=== PATIENT | female | born 1955 | race Caucasian/White ===

== ENCOUNTER → 2016-04-30 | Outpatient (REF) | payer OTHER | LOC: M LAB REF 14:55 | PROVIDERS: ATTEND Internal Medicine | DX: E78.5 Hyperlipidemia, unspecified (principal); E78.1 Pure hyperglyceridemia ==

== ENCOUNTER → 2017-01-03 | Outpatient (REF) | payer OTHER | LOC: M LAB REF 17:08 | PROVIDERS: ATTEND Internal Medicine | DX: E78.5 Hyperlipidemia, unspecified (principal) ==

== ENCOUNTER → 2018-05-14 | Outpatient (REF) | payer OTHER ==
[2018-05-16 14:21] LABS: HPV HYBRID CAPTURE II Negative (Negative)
== END ==
LOC: M SFHCWAGY 11:32
PROVIDERS: ATTEND Nurse Practitioner Family
DX: Z12.4 Encounter for screening for malignant neoplasm of cervix (principal); N95.2 Postmenopausal atrophic vaginitis
CPT/HCPCS: 87624; G0123

== ENCOUNTER → 2018-05-14 | Outpatient (CLI) | payer OTHER ==
--- NOTE | 2018-05-14 13:53 | REPMRS ---
Patient History The patient states she had a clinical breast exam in 05/2018. Patient is postmenopausal. Family history of breast cancer in maternal aunt, breast cancer in maternal grandmother, breast cancer in maternal cousin, colorectal cancer at age 50 or over in mother. Benign excisional biopsy of the left breast, 2005. Benign excisional biopsy of the right breast, 1971. Took hormonal contraceptives for 1 year beginning at age 20. 3D TOMOSYNTHESIS WAS PERFORMED. Digital Woman Screen Mammo: May 14, 2018 - Exam #: [id number] Bilateral CC and MLO view(s) were taken. Technologist: Cyndi Grant, Technologist Prior study comparison: May 17, 2015, digital woman screen mammo performed at [facility]. October 25, 2010, bilateral screening mammogram performed at [facility]. FINDINGS: The breast tissue is heterogeneously dense. This may lower the sensitivity of mammography. There has been no change in the appearance of the mammogram from the prior studies. There is a moderate amount of residual fibroglandular tissue which is fairly symmetric. There is no interval development of dominant mass, areas of architectural distortion, or clustered microcalcification typical of malignancy. Assessment: BI-RADS/ACR category 1 mammogram. Negative Mammogram. Recommendation Routine screening mammogram in 1 year (for women over age 40). This mammogram was interpreted with the aid of an FDA-approved computer-aided dectection system. Electronically Signed By: Jaylen Cali MD 05/14/18 [id number]
== END ==
LOC: M WHC 11:11
PROVIDERS: ATTEND Nurse Practitioner Family
DX: Z12.31 Encounter for screening mammogram for malignant neoplasm of breast (principal); Z78.0 Asymptomatic menopausal state; Z92.0 Personal history of contraception

== ENCOUNTER → 2019-05-05 | Outpatient (REF) | payer MEDICARE, OTHER ==
[2019-05-07 08:06] LABS: LDL DIRECT 120 mg/dL (0-99)
== END ==
LOC: M LAB REF 12:09
PROVIDERS: ATTEND Internal Medicine
DX: E78.5 Hyperlipidemia, unspecified (principal)

== ENCOUNTER → 2020-01-21 | Outpatient (REF) | payer MEDICARE, OTHER ==
[2020-01-23 07:07] LABS: LDL DIRECT 127 mg/dL (0-99)
== END ==
LOC: M LAB REF 16:08
PROVIDERS: ATTEND Internal Medicine
DX: E78.5 Hyperlipidemia, unspecified (principal)

== ENCOUNTER → 2020-12-08 | Outpatient (CLI) | payer MEDICARE, OTHER ==
--- NOTE | 2020-12-08 14:24 | REPMRS ---
Patient History The patient states she had a clinical breast exam in November 2020. Family history of breast cancer in maternal aunt, breast cancer in maternal grandmother, breast cancer in maternal cousin, colorectal cancer at age 50 or over in mother. Benign excisional biopsy of the left breast, 2005. Benign excisional biopsy of the right breast, 1971. Took hormonal contraceptives for 1 year beginning at age 20. Patient states no breast complaints today. Patient has signed MRS History Sheet. Digital Woman Screen Mammo: December 08, 2020 - Exam #: [id number] Bilateral CC and MLO view(s) were taken. Technologist: Zabrina Flores, Technologist Prior study comparison: May 14, 2018, bilateral digital woman screen mammo performed at [facility]. May 17, 2015, digital woman screen mammo performed at [facility]. FINDINGS: There are scattered fibroglandular densities. Screening. Digital screening (2D) mammography was performed bilaterally in the CC and MLO projections. Additionally, breast tomosynthesis (3D mammography) was performed bilaterally in the CC and MLO projections. Todays exam was compared to the prior exam/exams. By history, the patient has no complaints of a palpable breast abnormality or other significant breast complaints. The breasts are unchanged in size and shape. There are no rios-soft tissue densities or spiculated masses. There is no internal architectural distortion. Once again, stable benign appearing calcifications are seen.There are no suspicious rios-calcific clusters. Skin thickening or nipple retraction is not present. IMPRESSION: BI-RADS Category 2- Benign Findings. There is no evidence of malignant alteration of the breasts. Followup examination recommended in one year. The Volpara volumetric breast density category is B, there are scattered areas of fibroglandular densities. This mammogram was read with the assistance of [employer],an FDA approved computer aided detection system for mammography. The lifetime Tyrer-Cuzick score is 11.4 % Negative x-ray reports should not delay surgical consultation if a dominant or clinically suspicious mass is present. Not all breast cancers can be identified by mammography. Therefore, we recommend that you continue to perform regular breast self-examination and physical examination and then promptly contact your physician of any concerns or changes. Adenosis and dense breasts may obscure an underlying neoplasm. Assessment: BI-RADS/ACR category 2 mammogram. Benign Findings. Recommendation Routine screening mammogram of both breasts in 1 year. Electronically Signed By: Jenaro Maxwell DO 12/08/20 2021
== END ==
LOC: M WHC 13:21
PROVIDERS: ATTEND Nurse Practitioner Women's Health
DX: Z12.31 Encounter for screening mammogram for malignant neoplasm of breast (principal); Z80.3 Family history of malignant neoplasm of breast; Z12.4 Encounter for screening for malignant neoplasm of cervix
CPT/HCPCS: 77063; 77067; G0101

== ENCOUNTER → 2021-04-01 | Outpatient (CLI) | payer MEDICARE, OTHER ==
[~2021-04-01] MED LIST: CARV25TA PO; CENT1TAB PO; CVS-277 PO; D-50TAB PO; FAMO20TA5 PO; GLIM2TAB29 PO; INVO1TAB4 PO; MAGN400C2 PO; RAMI1CAP26 PO; TARTCAP PO; VICT18IN SC; VITA-243 PO; ZOLO100T PO; [UNRECOGNIZED DRUG - OTHER] PO
== END ==
LOC: M LABSMTC 12:28
PROVIDERS: ATTEND Anesthesiology
DX: Z01.812 Encounter for preprocedural laboratory examination (principal); Z20.822 Contact with and (suspected) exposure to COVID-19

== ENCOUNTER 2021-04-06 06:48 | Day surgery (SDC) | payer MEDICARE, OTHER ==
[~2021-04-06] VITALS: Ht 157.5 cm; Wt 100.2 kg
[~2021-04-06 06:48] MED LIST changes: +NS 1,000 ML IV ONE
[2021-04-06] MEDS ORDERED: GLYCOPYRROLATE INJ 0.2 MG/ML 2 ML VIAL As Ordered ONE (08:06)
[2021-04-06] MEDS ORDERED: LIDOCAINE 2% 100MG/5ML SDV (FOR ANES.) As Ordered ONE (08:06)
[2021-04-06] MEDS ORDERED: propofoL 200 MG/20 ML VIAL As Ordered ONE ×3 (08:06→08:20)
[2021-04-06 09:00] VITALS: BP 139/82
== END 2021-04-06 09:12 | disposition home or self-care (01) ==
LOC: M OPP 06:48
PROVIDERS: ATTEND Internal Medicine Gastroenterology
DX: Z12.11 Encounter for screening for malignant neoplasm of colon (principal); Z86.010 Personal history of colon polyps; Z80.0 Family history of malignant neoplasm of digestive organs; K63.5 Polyp of colon; K57.30 Diverticulosis of large intestine without perforation or abscess without bleeding; K29.70 Gastritis, unspecified, without bleeding; K57.10 Diverticulosis of small intestine without perforation or abscess without bleeding; R12 Heartburn; Z79.899 Other long term (current) drug therapy; Z88.0 Allergy status to penicillin; Z88.5 Allergy status to narcotic agent; Z88.8 Allergy status to other drugs, medicaments and biological substances; Z91.048 Other nonmedicinal substance allergy status; Z80.1 Family history of malignant neoplasm of trachea, bronchus and lung; Z80.3 Family history of malignant neoplasm of breast

== ENCOUNTER → 2021-06-13 | Outpatient (REF) | payer MEDICARE, OTHER ==
[~2021-06-13] MED LIST changes: -NS 1,000 ML IV ONE
== END ==
LOC: M LAB REF 11:18
PROVIDERS: ATTEND Internal Medicine
DX: L02.212 Cutaneous abscess of back [any part, except buttock and flank] (principal)

== ENCOUNTER → 2021-12-26 | Outpatient (REF) | payer MEDICARE, OTHER ==
[2021-12-28 08:11] LABS: LDL DIRECT 111 mg/dL (0-99)
== END ==
LOC: M LAB REF 12:44
PROVIDERS: ATTEND Physician Assistant Medical
DX: E78.5 Hyperlipidemia, unspecified (principal)

== ENCOUNTER → 2022-01-04 | Outpatient (CLI) | payer MEDICARE, OTHER | LOC: M WHC 14:29 | PROVIDERS: ATTEND Physician Assistant Medical | DX: Z12.31 Encounter for screening mammogram for malignant neoplasm of breast (principal); M85.851 Other specified disorders of bone density and structure, right thigh ==

== ENCOUNTER → 2022-10-02 | Outpatient (CLI) | payer MEDICARE, OTHER | LOC: M WUC 14:30 | PROVIDERS: ATTEND Physician Assistant Medical | DX: M47.812 Spondylosis without myelopathy or radiculopathy, cervical region (principal) ==

== ENCOUNTER → 2023-08-22 | Outpatient (REF) | payer MEDICARE, OTHER ==
[~2023-08-22] MED LIST changes: +RAMI10CA64 PO; -RAMI1CAP26 PO
== END ==
LOC: M LAB REF 16:20
PROVIDERS: ATTEND Student in an Organized Health Care Education/Training Program
DX: R30.0 Dysuria (principal)

== ENCOUNTER → 2023-08-27 | Outpatient (REF) | payer MEDICARE, OTHER | LOC: M LAB REF 17:47 | PROVIDERS: ATTEND Nurse Practitioner Family | DX: R10.9 Unspecified abdominal pain (principal); N39.0 Urinary tract infection, site not specified ==

== ENCOUNTER → 2023-10-04 | Outpatient (CLI) | payer MEDICARE, OTHER | LOC: M RAD 09:37 | PROVIDERS: ATTEND Physician Assistant Medical | DX: R10.9 Unspecified abdominal pain (principal); R35.0 Frequency of micturition; N20.0 Calculus of kidney ==

== ENCOUNTER → 2023-10-28 | Outpatient (CLI) | payer MEDICARE, OTHER | LOC: M RAD 11:18 | PROVIDERS: ATTEND Urology | DX: N20.0 Calculus of kidney (principal) ==

== ENCOUNTER 2023-12-05 11:19 | Inpatient (IN) | payer MEDICARE, OTHER ==
[~2023-12-05] VITALS: Ht 157.5 cm; Wt 89.1 kg
[2023-12-05] MEDS ORDERED: SEMA2PEN SQ (12:32)
[2023-12-05 12:52] LABS: BASO % 0.1 % (0.0-1.0); EOS % 0.3 % (0.0-3.0); HEMATOCRIT 35.2 % (36.0-47.0); HEMOGLOBIN 11.2 g/dl (12.0-15.5); LYMPH # 1.2 10^3/uL (1.5-5.0); LYMPH % 8.6 % (24.0-44.0); MEAN CORPUSCULAR HEMOGLOBIN 29.4 pg (27.0-33.0); MEAN CORPUSCULAR HGB CONC 31.8 g/dl (32.0-36.5); MEAN CORPUSCULAR VOLUME 92.4 fl (80.0-96.0); MONO # 0.8 10^3/uL (0.0-0.8); MONO % 5.8 % (2.0-8.0); NEUTROPHILS # 11.2 10^3/uL (1.5-8.5); NEUTROPHILS % 83.6 % (36.0-66.0); PLATELET COUNT, AUTOMATED 298 10^3/uL (150-450); RED BLOOD COUNT 3.81 10^6/uL (4.00-5.40); WHITE BLOOD COUNT 13.4 10^3/uL (4.0-10.0)
[2023-12-05] MEDS: ONDANSETRON 4MG 2ML VIAL IV ONE (12:55)
[2023-12-05] MEDS: MORPHINE 2 MG/ML 1ML VIAL IV ONE (12:55)
[2023-12-05] MEDS: NS 2,520 ML in IV 1 EA IV ONE (12:56)
[2023-12-05] MEDS ORDERED: DOXY100C3 PO (13:06)
[2023-12-05] MEDS ORDERED: METF10004 PO (13:16)
[2023-12-05] MEDS ORDERED: INVO300T PO (13:16)
[2023-12-05] MEDS ORDERED: GLIP10TA15 PO (13:16)
[2023-12-05 13:17] LABS: CK-MB VALUE MASS < 1.0 NG/ML (<3.6)
[2023-12-05 13:18] LABS: VENOUS BASE EXCESS -9.6 (-2.0-2.0); VENOUS HCO3 16.8 MMOL/L (23.0-27.0); VENOUS O2 SATURATION 52.9 % (60.0-80.0); VENOUS PARTIAL PRESSURE CO2 38.4 mmHg (38.0-50.0); VENOUS PARTIAL PRESSURE O2 31.3 mmHg (30.0-50.0); VENOUS PH 7.258 UNITS (7.330-7.430); VENOUS TOTAL CO2 17.9 MMOL/L (24.0-28.0)
[2023-12-05] MEDS ORDERED: GABA-1171 PO (13:18)
[2023-12-05] MEDS ORDERED: GLIP5TAB17 PO (13:18)
[2023-12-05] MEDS ORDERED: HOME MED LIST COMPLETE! XX SCH (13:20)
[2023-12-05 13:26] LABS: PROCALCITONIN 0.11 ng/ml
[2023-12-05 13:29] LABS: ALBUMIN 2.7 G/DL (3.2-5.2); ALKALINE PHOSPHATASE 125 U/L (46-116); ALT/SGPT < 9 U/L (7.0-40); AST/SGOT 17 U/L (<34); BILIRUBIN,DIRECT 0.1 MG/DL (<0.4); BILIRUBIN,TOTAL 0.4 MG/DL (0.3-1.2); BLOOD UREA NITROGEN 21 MG/DL (9-23); CALCIUM LEVEL 9.5 MG/DL (8.3-10.6); CARBON DIOXIDE LEVEL 19 MMOL/L (20-31); CHLORIDE LEVEL 108 MMOL/L (98-107); CREATININE FOR GFR 0.62 MG/DL (0.55-1.30); GLOMERULAR FILTRATION RATE > 60.0 (>39); GLUCOSE, FASTING 209 MG/DL (74-106); POTASSIUM SERUM 5.4 MMOL/L (3.5-5.1); SODIUM LEVEL 138 MMOL/L (136-145); TOTAL PROTEIN 6.3 G/DL (5.7-8.2)
[2023-12-05 13:32] LABS: AMYLASE < 20 U/L (30-118); CPK CREATINE PHOSPHOKINASE 23 U/L (34-145); MB/CK RELATIVE INDEX 4.34 (< OR =4)
[2023-12-05 13:33] LABS: INR 1.11; PARTIAL THROMBOPLASTIN TIME 29.6 SECONDS (24.8-34.2); PROTHROMBIN TIME 13.9 SECONDS (12.5-14.5)
[2023-12-05] MEDS ORDERED: ISOVUE-370 76% 100ML VIAL As Ordered ONE (13:34)
[2023-12-05] MEDS ORDERED: VANCOMYCIN HCL 1,000 MG in IV FLUID PLACE HOLDER 1 EA IV ONE (15:30)
[2023-12-05 15:45] LABS: APPEARANCE, URINE HAZY (CLEAR); BACTERIA, URINE AUTO NEGATIVE (NEGATIVE); BILIRUBIN, URINE AUTO NEGATIVE (NEGATIVE); BLOOD, URINE BLOOD NEGATIVE (NEGATIVE); COLOR, URINE YELLOW (YELLOW); GLUCOSE, URINE (UA) AUTO 3+ mg/dL (NEGATIVE); KETONE, URINE AUTO TRACE mg/dL (NEGATIVE); LEUKOCYTE ESTERASE, URINE AUTO TRACE (NEGATIVE); MUCUS, URINE SMALL (NEGATIVE); NITRITE, URINE AUTO NEGATIVE (NEGATIVE); PROTEIN, URINE AUTO NEGATIVE (NEGATIVE); RBC, URINE AUTO 0 /HPF (0-3); SPECIFIC GRAVITY URINE AUTO 1.035 (1.002-1.035); SQUAMOUS EPITHELIAL CELL UR AU 1 /HPF (0-6); UROBILINOGEN, URINE AUTO 0.2 mg/dL (0.0-2.0); WBC, URINE AUTO 6 /HPF (0-3)
[2023-12-05] MEDS ORDERED: ACETAMINOPHEN TAB 650MG DOSE (2X325MG) PO PRN (16:20)
[2023-12-05] MEDS: cefTRIAXone SOD 1 GM in D5W MINI-BAG PLUS 50 ML IV ONE (16:50)
[2023-12-05] MEDS ORDERED: PIPERACILLIN/TAZOBACTAM SOD 3.375 GM in D5W MINI-BAG PLUS 50 ML IV SCH (17:45)
[2023-12-05] MEDS: VANCOMYCIN 1,500 MG/300 ML IV BAG *LOAD IV ONE (17:46)
[2023-12-05] MEDS ORDERED: GLUCOSE 4 GM CHEW PO PRN (17:50)
[2023-12-05] MEDS ORDERED: GLUCAGON INJ 1MG VIAL SC PRN (17:50)
[2023-12-05] MEDS ORDERED: DEXTROSE 50% 50ML SYRINGE IV PRN (17:50)
[2023-12-05 18:00] LABS: FREE T4 1.04 NG/DL (0.89-1.76); THYROID STIMULATING HORMONE 0.888 uIU/ML (0.55-4.78)
[2023-12-05 18:49] LABS: HEMOGLOBIN A1c 8.3 % (4.0-6.0)
[2023-12-05] MEDS: MORPHINE 4 MG/ML 1ML VIAL IV PRN (19:57)
[2023-12-05] MEDS: LIDOCAINE W/EPINEPHRINE 1% 20ML VIAL SC ONE (20:15)
[2023-12-05] MEDS: INSULIN LISPRO (NovoLOG) PER UNIT SC SCH (21:00)
[2023-12-05] MEDS: MEROPENEM INJ 1 GM in IV 1 EA IV SCH (21:30)
[2023-12-05] MEDS: FAMOTIDINE 20 MG TAB PO SCH (21:32)
[2023-12-05] MEDS: CARVedilol 12.5 MG TAB PO SCH (21:32)
[2023-12-05] MEDS: NS 500 ML IV ONE (21:34)
[2023-12-05] MEDS: SODIUM BICARBONATE 325 MG TAB PO SCH (22:07)
[2023-12-05] MEDS: NS 1,000 ML IV SCH (22:13)
[2023-12-06 03:10] VITALS: BP 107/50; TEMP 99.4; O2SAT 93
[2023-12-06] MEDS ORDERED: ALBUTEROL 90 MCG/ACT 8GM HFA INHALER INH PRN (04:10)
[2023-12-06] MEDS ORDERED: DEXTROMETHORPHAN 60MG/10ML SUSP 90ML BTL(DELSYM) PO PRN (04:10)
[2023-12-06 06:16] LABS: MEAN CORPUSCULAR HEMOGLOBIN 29.7 pg (27.0-33.0); MEAN CORPUSCULAR HGB CONC 31.4 g/dl (32.0-36.5); MEAN CORPUSCULAR VOLUME 94.5 fl (80.0-96.0); PLATELET COUNT, AUTOMATED 263 10^3/uL (150-450); WHITE BLOOD COUNT 15.8 10^3/uL (4.0-10.0)
[2023-12-06] MEDS: VANCOMYCIN HCL 1,000 MG, VIAL MATE ADAPTER 1 EACH in D5W 250 ML IV SCH (06:22)
[2023-12-06 06:27] LABS: HEMATOCRIT 29.3 % (36.0-47.0); HEMOGLOBIN 9.2 g/dl (12.0-15.5)
[2023-12-06 06:58] LABS: ALBUMIN 2.1 G/DL (3.2-5.2); ALKALINE PHOSPHATASE 105 U/L (46-116); ALT/SGPT < 9 U/L (7.0-40); AST/SGOT < 8 U/L (<34); BILIRUBIN,TOTAL 0.2 MG/DL (0.3-1.2); BLOOD UREA NITROGEN 19 MG/DL (9-23); CALCIUM LEVEL 8.2 MG/DL (8.3-10.6); CARBON DIOXIDE LEVEL 12 MMOL/L (20-31); CHLORIDE LEVEL 111 MMOL/L (98-107); CREATININE FOR GFR 0.72 MG/DL (0.55-1.30); GLOMERULAR FILTRATION RATE > 60.0 (>39); GLUCOSE, FASTING 162 MG/DL (74-106); MAGNESIUM LEVEL 1.9 MG/DL (1.8-2.4); POTASSIUM SERUM 4.8 MMOL/L (3.5-5.1); SODIUM LEVEL 136 MMOL/L (136-145); TOTAL PROTEIN 5.2 G/DL (5.7-8.2)
[2023-12-06 09:17] VITALS: BP 99/41
[2023-12-06] MEDS: ASCORBIC ACID 500 MG TAB PO SCH (09:18)
[2023-12-06] MEDS: LACTOBACILLUS ACIDOPHILUS CAP (BACID) PO SCH (09:18)
[2023-12-06] MEDS: GABAPENTIN 100 MG CAP PO SCH (09:19)
[2023-12-06] MEDS: FLUCONAZOLE 50MG TABLET PO SCH (09:20)
[2023-12-06] MEDS: INSULIN LISPRO (NovoLOG) PER UNIT SC SCH (09:25)
[2023-12-06] MEDS: DIAPER RELIEF PASTE (DESITIN) 60GM TOP SCH (09:26)
[2023-12-06] MEDS: SERTRALINE 100 MG TAB PO SCH (09:27)
[2023-12-06] MEDS: MULTIVITAMINS/MINERALS THERAP 1 TAB PO SCH (09:27)
[2023-12-06] MEDS: NS 500 ML IV ONE (10:33)
[2023-12-06] MEDS: SODIUM BICARBONATE 150 MEQ in STERILE WATER LITER BAG 1,000 ML IV SCH (11:12)
[2023-12-06 13:00] VITALS: BP 119/50; TEMP 97.9; O2SAT 93
[2023-12-06] MEDS ORDERED: CEPACOL LOZENGE PO PRN (17:45)
[2023-12-06 20:17] VITALS: BP 122/53; TEMP 98.8; O2SAT 92
[2023-12-06] MEDS: NYSTATIN 500,000U/5ML SUSP UDC PO SCH (20:26)
[2023-12-06] MEDS ORDERED: BALMEX CREAM 60GM TOP PRN (21:30)
[2023-12-07 03:42] VITALS: BP 108/53; TEMP 97.9; O2SAT 92
[2023-12-07 05:56] LABS: VENOUS HCO3 12.7 MMOL/L (23.0-27.0); VENOUS O2 SATURATION 95.8 % (60.0-80.0); VENOUS PARTIAL PRESSURE CO2 25.7 mmHg (38.0-50.0); VENOUS PARTIAL PRESSURE O2 90.6 mmHg (30.0-50.0); VENOUS PH 7.312 UNITS (7.330-7.430); VENOUS STANDARD HCO3 14.9 MMOL/L; VENOUS TOTAL CO2 13.5 MMOL/L (24.0-28.0)
[2023-12-07 06:04] LABS: BASO # 0.1 10^3/uL (0.0-0.2); BASO % 0.4 % (0.0-1.0); EOS # 0.1 10^3/uL (0.0-0.5); EOS % 0.5 % (0.0-3.0); HEMATOCRIT 31.2 % (36.0-47.0); HEMOGLOBIN 9.5 g/dl (12.0-15.5); LYMPH # 1.6 10^3/uL (1.5-5.0); LYMPH % 13.1 % (24.0-44.0); MEAN CORPUSCULAR HEMOGLOBIN 28.7 pg (27.0-33.0); MEAN CORPUSCULAR HGB CONC 30.4 g/dl (32.0-36.5); MEAN CORPUSCULAR VOLUME 94.3 fl (80.0-96.0); MONO # 0.7 10^3/uL (0.0-0.8); MONO % 5.9 % (2.0-8.0); NEUTROPHILS # 9.5 10^3/uL (1.5-8.5); NEUTROPHILS % 76.1 % (36.0-66.0); PLATELET COUNT, AUTOMATED 291 10^3/uL (150-450); RED BLOOD COUNT 3.31 10^6/uL (4.00-5.40); WHITE BLOOD COUNT 12.5 10^3/uL (4.0-10.0)
[2023-12-07 06:31] LABS: BLOOD UREA NITROGEN 17 MG/DL (9-23); CALCIUM LEVEL 7.9 MG/DL (8.3-10.6); CARBON DIOXIDE LEVEL 15 MMOL/L (20-31); CHLORIDE LEVEL 106 MMOL/L (98-107); CREATININE FOR GFR 0.66 MG/DL (0.55-1.30); GLOMERULAR FILTRATION RATE > 60.0 (>39); GLUCOSE, FASTING 116 MG/DL (74-106); POTASSIUM SERUM 4.2 MMOL/L (3.5-5.1); SODIUM LEVEL 140 MMOL/L (136-145)
[2023-12-07 08:30] VITALS: O2SAT 92
[2023-12-07] MEDS: SODIUM BICARBONATE 325 MG TAB PO SCH (09:04)
[2023-12-07 12:00] VITALS: BP 129/52; TEMP 97.7; O2SAT 93
[2023-12-07 20:20] VITALS: BP 128/57; TEMP 98.1; O2SAT 91
[2023-12-07] MEDS: MORPHINE 2 MG/ML 1ML VIAL IV PRN (22:12)
[2023-12-08] VITALS (7 sets, daily range): BP systolic 127–136; BP diastolic 57–62; TEMP 97.8–98.2; O2SAT 84–95
[2023-12-08] MEDS: METOCLOPRAMIDE INJ 10MG/2ML VIAL IV ONE (02:20)
[2023-12-08 08:24] LABS: BASO # 0.1 10^3/uL (0.0-0.2); BASO % 0.5 % (0.0-1.0); EOS # 0.1 10^3/uL (0.0-0.5); EOS % 0.8 % (0.0-3.0); HEMATOCRIT 30.7 % (36.0-47.0); HEMOGLOBIN 9.7 g/dl (12.0-15.5); LYMPH # 1.9 10^3/uL (1.5-5.0); LYMPH % 15.9 % (24.0-44.0); MEAN CORPUSCULAR HGB CONC 31.6 g/dl (32.0-36.5); MEAN CORPUSCULAR VOLUME 91.9 fl (80.0-96.0); MONO # 0.9 10^3/uL (0.0-0.8); MONO % 7.1 % (2.0-8.0); NEUTROPHILS # 8.7 10^3/uL (1.5-8.5); NEUTROPHILS % 70.9 % (36.0-66.0); PLATELET COUNT, AUTOMATED 315 10^3/uL (150-450); RED BLOOD COUNT 3.34 10^6/uL (4.00-5.40); WHITE BLOOD COUNT 12.2 10^3/uL (4.0-10.0)
[2023-12-08 08:53] LABS: BLOOD UREA NITROGEN 14 MG/DL (9-23); CARBON DIOXIDE LEVEL 19 MMOL/L (20-31); CHLORIDE LEVEL 105 MMOL/L (98-107); CREATININE FOR GFR 0.56 MG/DL (0.55-1.30); GLOMERULAR FILTRATION RATE > 60.0 (>39); GLUCOSE, FASTING 125 MG/DL (74-106); POTASSIUM SERUM 3.9 MMOL/L (3.5-5.1); SODIUM LEVEL 141 MMOL/L (136-145)
[2023-12-08] MEDS: ONDANSETRON 4MG 2ML VIAL IV PRN (09:45)
[2023-12-08] MEDS: CARVedilol 12.5 MG TAB PO SCH (15:24)
[2023-12-08] MEDS: DIAPER RELIEF PASTE (DESITIN) 60GM TOP PRN (16:18)
[2023-12-09] VITALS (9 sets, daily range): BP systolic 93–119; BP diastolic 47–67; TEMP 98.1–98.8; O2SAT 81–94
[2023-12-09 06:01] LABS: HEMATOCRIT 28.1 % (36.0-47.0); HEMOGLOBIN 8.9 g/dl (12.0-15.5); MEAN CORPUSCULAR HEMOGLOBIN 28.8 pg (27.0-33.0); MEAN CORPUSCULAR HGB CONC 31.7 g/dl (32.0-36.5); MEAN CORPUSCULAR VOLUME 90.9 fl (80.0-96.0); PLATELET COUNT, AUTOMATED 335 10^3/uL (150-450); RED BLOOD COUNT 3.09 10^6/uL (4.00-5.40)
[2023-12-09 06:08] LABS: BLOOD UREA NITROGEN 11 MG/DL (9-23); CALCIUM LEVEL 7.8 MG/DL (8.3-10.6); CARBON DIOXIDE LEVEL 30 MMOL/L (20-31); CHLORIDE LEVEL 104 MMOL/L (98-107); CREATININE FOR GFR 0.44 MG/DL (0.55-1.30); GLOMERULAR FILTRATION RATE > 60.0 (>39); GLUCOSE, FASTING 144 MG/DL (74-106); MAGNESIUM LEVEL 1.8 MG/DL (1.8-2.4); POTASSIUM SERUM 3.9 MMOL/L (3.5-5.1); SODIUM LEVEL 143 MMOL/L (136-145)
[2023-12-09 06:59] LABS: ATYPICAL LYMPH 1 % (0-5); EOSINOPHILS 2 % (0-3); LYMPHOCYTES 23 % (16-44); METAMYELOCYTES 1 % (0-0); MONOCYTES 5 % (0-5); NEUTROPHILS 67 % (28-66); PLATELET ESTIMATE NORMAL (NORMAL)
[2023-12-09 07:00] LABS: ANISOCYTOSIS 1+; HYPOCHROMASIA 1+; OVALOCYTES 1+; POIKILOCYTOSIS 1+
[2023-12-10 04:00] VITALS: BP 112/66; TEMP 98.6; O2SAT 93
[2023-12-10 06:29] LABS: BASO % 0.7 % (0.0-1.0); EOS # 0.1 10^3/uL (0.0-0.5); EOS % 1.3 % (0.0-3.0); HEMATOCRIT 30.7 % (36.0-47.0); HEMOGLOBIN 9.7 g/dl (12.0-15.5); LYMPH # 1.8 10^3/uL (1.5-5.0); LYMPH % 30.1 % (24.0-44.0); MEAN CORPUSCULAR HEMOGLOBIN 28.6 pg (27.0-33.0); MEAN CORPUSCULAR HGB CONC 31.6 g/dl (32.0-36.5); MEAN CORPUSCULAR VOLUME 90.6 fl (80.0-96.0); MONO # 0.7 10^3/uL (0.0-0.8); NEUTROPHILS # 2.9 10^3/uL (1.5-8.5); NEUTROPHILS % 48.6 % (36.0-66.0); PLATELET COUNT, AUTOMATED 300 10^3/uL (150-450); RED BLOOD COUNT 3.39 10^6/uL (4.00-5.40)
[2023-12-10 07:04] LABS: BLOOD UREA NITROGEN 9 MG/DL (9-23); CALCIUM LEVEL 8.6 MG/DL (8.3-10.6); CARBON DIOXIDE LEVEL 33 MMOL/L (20-31); CHLORIDE LEVEL 104 MMOL/L (98-107); CREATININE FOR GFR 0.42 MG/DL (0.55-1.30); GLOMERULAR FILTRATION RATE > 60.0 (>39); GLUCOSE, FASTING 161 MG/DL (74-106); MAGNESIUM LEVEL 1.7 MG/DL (1.8-2.4); POTASSIUM SERUM 3.4 MMOL/L (3.5-5.1); SODIUM LEVEL 143 MMOL/L (136-145)
[2023-12-10 10:00] VITALS: BP 101/43
[2023-12-10] MEDS: POTASSIUM CHLORIDE 10MEQ SR TABLET PO ONE (10:05)
[2023-12-10 12:00] VITALS: BP 105/73; TEMP 97.2; O2SAT 93
[2023-12-10 19:23] VITALS: BP 147/66; TEMP 97.9; O2SAT 90
[2023-12-10 20:00] VITALS: O2SAT 93
[2023-12-10] MEDS: CEFDINIR 300 MG CAP (OMNICEF) PO SCH (22:22)
[2023-12-10] MEDS ORDERED: PERCOCET 5MG/325MG TAB PO PRN (23:35)
[2023-12-10] MEDS: PERCOCET 5MG/325MG TAB PO PRN (23:47)
[2023-12-11 04:27] VITALS: BP 140/67; TEMP 98.1; O2SAT 92
[2023-12-11 08:55] VITALS: BP 140/64
[2023-12-11 09:30] LABS: HEMATOCRIT 31.7 % (36.0-47.0); MEAN CORPUSCULAR HEMOGLOBIN 29.2 pg (27.0-33.0); MEAN CORPUSCULAR HGB CONC 31.5 g/dl (32.0-36.5); MEAN CORPUSCULAR VOLUME 92.7 fl (80.0-96.0); PLATELET COUNT, AUTOMATED 292 10^3/uL (150-450); RED BLOOD COUNT 3.42 10^6/uL (4.00-5.40)
[2023-12-11 10:04] LABS: BLOOD UREA NITROGEN 9 MG/DL (9-23); CALCIUM LEVEL 8.7 MG/DL (8.3-10.6); CARBON DIOXIDE LEVEL 33 MMOL/L (20-31); CHLORIDE LEVEL 106 MMOL/L (98-107); CREATININE FOR GFR 0.44 MG/DL (0.55-1.30); GLOMERULAR FILTRATION RATE > 60.0 (>39); GLUCOSE, FASTING 204 MG/DL (74-106); POTASSIUM SERUM 3.9 MMOL/L (3.5-5.1); SODIUM LEVEL 145 MMOL/L (136-145)
[2023-12-11 10:34] VITALS: O2SAT 91
[2023-12-11 11:20] VITALS: O2SAT 90
[2023-12-11 12:00] VITALS: BP 138/65; TEMP 98.4; O2SAT 91
[2023-12-11] MEDS ORDERED: PERCOCET PO (18:22)
[2023-12-11] MEDS ORDERED: BALMOINT60 TOP (18:22)
[2023-12-11] MEDS ORDERED: CEFD300CAP PO (18:22)
== END 2023-12-11 19:08 | disposition home or self-care (01) | DRG 871 ==
LOC: M ED 11:19 → EDBD 11:19 → M ED INP 16:17 → M MSPAV 12-06 03:12
PROVIDERS: ADMIT Hospitalist; ATTEND Student in an Organized Health Care Education/Training Program
PROC: 0H98XZZ Drainage of Buttock Skin, External Approach (ICD-10-PCS; principal; 2023-12-05)
DX: A41.9 Sepsis, unspecified organism (principal); U07.1 COVID-19; K61.0 Anal abscess; E87.20 Acidosis, unspecified; L03.317 Cellulitis of buttock; N39.0 Urinary tract infection, site not specified; J84.9 Interstitial pulmonary disease, unspecified; J98.11 Atelectasis; E11.9 Type 2 diabetes mellitus without complications; F41.9 Anxiety disorder, unspecified; F32.A Depression, unspecified; E87.5 Hyperkalemia; Q24.9 Congenital malformation of heart, unspecified; B96.1 Klebsiella pneumoniae [K. pneumoniae] as the cause of diseases classified elsewhere; R33.9 Retention of urine, unspecified; K52.9 Noninfective gastroenteritis and colitis, unspecified; Z90.49 Acquired absence of other specified parts of digestive tract; Z79.84 Long term (current) use of oral hypoglycemic drugs; Z79.899 Other long term (current) drug therapy; Z88.0 Allergy status to penicillin; Z91.048 Other nonmedicinal substance allergy status; Z88.5 Allergy status to narcotic agent; Z88.6 Allergy status to analgesic agent

== ENCOUNTER → 2024-01-09 | Outpatient (CLI) | payer MEDICARE, OTHER ==
[~2024-01-09] MED LIST changes: +BALMOINT60 TOP; +CEFD300CAP PO; +DOXY100C3 PO; +GABA-1171 PO; +GLIP10TA15 PO; +GLIP5TAB17 PO; +INVO300T PO; +METF10004 PO; +PERCOCET PO; +SEMA2PEN SQ
[2024-01-09 15:13] LABS: BASO # 0.1 10^3/uL (0.0-0.2); BASO % 0.9 % (0.0-1.0); EOS # 0.1 10^3/uL (0.0-0.5); EOS % 1.8 % (0.0-3.0); HEMATOCRIT 38.9 % (36.0-47.0); HEMOGLOBIN 12.2 g/dl (12.0-15.5); LYMPH # 2.6 10^3/uL (1.5-5.0); LYMPH % 32.2 % (24.0-44.0); MEAN CORPUSCULAR HEMOGLOBIN 28.4 pg (27.0-33.0); MEAN CORPUSCULAR HGB CONC 31.4 g/dl (32.0-36.5); MEAN CORPUSCULAR VOLUME 90.7 fl (80.0-96.0); MONO # 0.5 10^3/uL (0.0-0.8); MONO % 6.6 % (2.0-8.0); NEUTROPHILS # 4.6 10^3/uL (1.5-8.5); NEUTROPHILS % 58.1 % (36.0-66.0); PLATELET COUNT, AUTOMATED 293 10^3/uL (150-450); RED BLOOD COUNT 4.29 10^6/uL (4.00-5.40)
[2024-01-09 15:14] LABS: C REACTIVE PROTEIN QUANTITATIV < 0.40 MG/DL (<1.0)
[2024-01-09 15:18] LABS: ERYTHROCYTE SEDIMENTATION RATE 35 mm/hr (0-30)
[2024-01-09 15:55] LABS: ALBUMIN 3.4 G/DL (3.2-5.2); ALKALINE PHOSPHATASE 90 U/L (35-104); ALT/SGPT 10 U/L (7.0-40); AST/SGOT < 8 U/L (<34); BILIRUBIN,TOTAL 0.4 MG/DL (0.3-1.2); BLOOD UREA NITROGEN 28 MG/DL (9-23); CARBON DIOXIDE LEVEL 25 MMOL/L (20-31); CHLORIDE LEVEL 106 MMOL/L (98-107); CREATININE FOR GFR 0.52 MG/DL (0.55-1.30); GLOMERULAR FILTRATION RATE > 60.0 (>39); GLUCOSE, FASTING 233 MG/DL (74-106); POTASSIUM SERUM 4.1 MMOL/L (3.5-5.1); SODIUM LEVEL 139 MMOL/L (136-145)
== END ==
LOC: M PLALAB 12:48
PROVIDERS: ATTEND Internal Medicine Infectious Disease
DX: K61.1 Rectal abscess (principal)

== ENCOUNTER → 2024-01-17 | Outpatient (CLI) | payer MEDICARE, OTHER ==
[~2024-01-17] MED LIST changes: +GASTROGRAFIN SOLUTION 30ML ONE; +ISOVUE-370 76% 100ML VIAL ONE
== END ==
LOC: M PLAIMG 11:23
PROVIDERS: ATTEND Internal Medicine Infectious Disease
DX: K61.1 Rectal abscess (principal)
CPT/HCPCS: 74178; Q9963; Q9967

== ENCOUNTER → 2024-04-17 | Outpatient (CLI) | payer MEDICARE, OTHER ==
[~2024-04-17] MED LIST changes: -GASTROGRAFIN SOLUTION 30ML ONE; -ISOVUE-370 76% 100ML VIAL ONE
== END ==
LOC: M PLAIMG 10:16
PROVIDERS: ATTEND Physician Assistant Medical
DX: R91.1 Solitary pulmonary nodule (principal)

== ENCOUNTER 2024-10-23 08:58 | Inpatient (IN) | payer MEDICARE, OTHER ==
[2024-10-23] VITALS (18 sets, daily range): BP systolic 93–137; BP diastolic 48–57; TEMP 97.6–97.7; O2SAT 94–99
[~2024-10-23] VITALS: Ht 160 cm; Wt 88.6 kg
[2024-10-23] MEDS ORDERED: LevoFLOXacin IV 750 MG in IV 1 EA IV ONE (09:50)
[2024-10-23] MEDS: LIDOCAINE 2% 5 ML JELLY UROJET TOP ONE ×2 (09:55→14:42)
[2024-10-23] MEDS: NS (Normal Saline) 0.9% 1,660 ML in IV 1 EA IV ONE (09:55)
[2024-10-23 10:07] LABS: VENOUS BASE EXCESS -9.6 (-2.0-2.0); VENOUS HCO3 15.0 MMOL/L (23.0-27.0); VENOUS O2 SATURATION 93.3 % (60.0-80.0); VENOUS PARTIAL PRESSURE CO2 29.3 mmHg (38.0-50.0); VENOUS PARTIAL PRESSURE O2 66.3 mmHg (30.0-50.0); VENOUS PH 7.327 UNITS (7.330-7.430); VENOUS STANDARD HCO3 16.8 MMOL/L; VENOUS TOTAL CO2 15.9 MMOL/L (24.0-28.0)
[2024-10-23 10:11] LABS: BASO # 0.0 10^3/uL (0.0-0.2); BASO % 0.3 % (0.0-1.0); EOS # 0.0 10^3/uL (0.0-0.5); EOS % 0.3 % (0.0-3.0); LYMPH # 0.9 10^3/uL (1.5-5.0); LYMPH % 7.7 % (24.0-44.0); MONO # 0.8 10^3/uL (0.0-0.8); MONO % 6.6 % (2.0-8.0); NEUTROPHILS # 10.1 10^3/uL (1.5-8.5); NEUTROPHILS % 84.3 % (36.0-66.0); PLATELET COUNT, AUTOMATED 180 10^3/uL (150-450)
[2024-10-23 10:37] LABS: APPEARANCE, URINE HAZY (CLEAR); BACTERIA, URINE AUTO 2+ (NEGATIVE); BILIRUBIN, URINE AUTO NEGATIVE (NEGATIVE); BLOOD, URINE BLOOD NEGATIVE (NEGATIVE); GLUCOSE, URINE (UA) AUTO 3+ mg/dL (NEGATIVE); KETONE, URINE AUTO NEGATIVE (NEGATIVE); LEUKOCYTE ESTERASE, URINE AUTO TRACE (NEGATIVE); NITRITE, URINE AUTO NEGATIVE (NEGATIVE); PROTEIN, URINE AUTO NEGATIVE (NEGATIVE); RBC, URINE AUTO 0 /HPF (0-3); SPECIFIC GRAVITY URINE AUTO 1.015 (1.002-1.035); SQUAMOUS EPITHELIAL CELL UR AU 0 /HPF (0-6); UROBILINOGEN, URINE AUTO 0.2 mg/dL (0.0-2.0); WBC, URINE AUTO 3 /HPF (0-3)
[2024-10-23] MEDS: NS (Normal Saline) 0.9% 1,000 ML IV ONE ×2 (10:38→13:09)
[2024-10-23 10:43] LABS: ALT/SGPT 21 U/L (7.0-40); AST/SGOT 35 U/L (<34); CK-MB VALUE MASS < 1.0 NG/ML (<3.6); CPK CREATINE PHOSPHOKINASE 47 U/L (34-145)
[2024-10-23] MEDS: cefTRIAXone SOD 2 GM in DEXTROSE 5% (D5W) ADV/MINI-BAG 50 ML IV ONE (10:51)
[2024-10-23] MEDS: ACETAMINOPHEN *IV* 1,000 MG in IV 1 EA IV ONE (10:51)
[2024-10-23 10:53] LABS: C REACTIVE PROTEIN QUANTITATIV 12.68 MG/DL (<1.0); CALCIUM LEVEL 8.9 MG/DL (8.3-10.6); CARBON DIOXIDE LEVEL 16 MMOL/L (20-31); CHLORIDE LEVEL 105 MMOL/L (98-107); CREATININE FOR GFR 1.00 MG/DL (0.55-1.30); GLOMERULAR FILTRATION RATE 60.2 (>39); INR 1.03; POTASSIUM SERUM 6.1 MMOL/L (3.5-5.1); SODIUM LEVEL 134 MMOL/L (136-145)
[2024-10-23] MEDS ORDERED: ISOVUE-370 76% 100 ML VIAL As Ordered ONE (10:57)
[2024-10-23 12:07] LABS: CK-MB VALUE MASS 1.1 NG/ML (<3.6)
[2024-10-23 12:10] LABS: CPK CREATINE PHOSPHOKINASE 44.0 U/L (34-145); MB/CK RELATIVE INDEX 2.5 (< OR =4)
[2024-10-23] MEDS ORDERED: HOME MED LIST COMPLETE! XX SCH (12:25)
[2024-10-23] MEDS ORDERED: VONO20TA PO (12:25)
[2024-10-23 12:33] LABS: CARBON DIOXIDE LEVEL 15.0 MMOL/L (20-31); CHLORIDE LEVEL 102.0 MMOL/L (98-107); POTASSIUM SERUM 5.1 MMOL/L (3.5-5.1); SODIUM LEVEL 131.0 MMOL/L (136-145)
[2024-10-23 12:42] LABS: CALCIUM LEVEL 8.0 MG/DL (8.3-10.6); CREATININE FOR GFR 1.01 MG/DL (0.55-1.30); GLOMERULAR FILTRATION RATE 59.5 (>39)
[2024-10-23] MEDS: HumuLIN R (REGULAR) INSULIN (NovoLIN R) **100 U/ML** PER UNIT IV ONE (13:08)
[2024-10-23] MEDS: NOREPINEPHRINE 4MG IN D5 250ML 4 MG in IV 1 EA IV SCH (14:34)
[2024-10-23] MEDS: HYDROCORTISONE 100 MG/2 ML VIAL IV ONE (14:56)
[2024-10-23] MEDS ORDERED: VASOPRESSIN IN 0.9 % NACL 20 UNIT in IV 1 EA IV SCH (16:30)
[2024-10-23] MEDS ORDERED: NOREPINEPHRINE 4MG IN D5 250ML 4 MG in IV 1 EA IV SCH (16:30)
[2024-10-23] MEDS: LR 1,000 ML IV ONE ×2 (17:36→18:17)
[2024-10-23] MEDS: LR 1,000 ML IV SCH (19:22)
[2024-10-23] MEDS: CEFEPIME HCL 1 GM in DEXTROSE 5% (D5W) ADV/MINI-BAG 50 ML IV SCH (20:16)
[2024-10-23] MEDS ORDERED: GLUCAGON INJ 1 MG VIAL SC PRN (21:20)
[2024-10-23] MEDS ORDERED: DEXTROSE 50% 50 ML SYRINGE IV PRN (21:20)
[2024-10-23] MEDS ORDERED: GLUCOSE 4 GM CHEW PO PRN (21:20)
[2024-10-23] MEDS: HEPARIN SOD 5000 UNITS/ML 1 ML VIAL/SYRINGE SC SCH (21:38)
[2024-10-23] MEDS: INSULIN LISPRO (NovoLOG) PER UNIT SC SCH (21:45)
[2024-10-23] MEDS: HYDROCORTISONE 100 MG/2 ML VIAL IV SCH (23:29)
[2024-10-24] VITALS (21 sets, daily range): BP systolic 91–122; BP diastolic 44–58; TEMP 97.3–98.5; O2SAT 88–100
[2024-10-24 04:47] LABS: VENOUS BASE EXCESS -10.2 (-2.0-2.0); VENOUS HCO3 15.6 MMOL/L (23.0-27.0); VENOUS O2 SATURATION 90.4 % (60.0-80.0); VENOUS PARTIAL PRESSURE CO2 34.5 mmHg (38.0-50.0); VENOUS PARTIAL PRESSURE O2 61.3 mmHg (30.0-50.0); VENOUS PH 7.274 UNITS (7.330-7.430); VENOUS STANDARD HCO3 16.2 MMOL/L; VENOUS TOTAL CO2 16.7 MMOL/L (24.0-28.0)
[2024-10-24 05:21] LABS: ALT/SGPT 16.0 U/L (7.0-40); AST/SGOT 13.0 U/L (<34); CALCIUM LEVEL 9.3 MG/DL (8.3-10.6); CARBON DIOXIDE LEVEL 16.0 MMOL/L (20-31); CHLORIDE LEVEL 107.0 MMOL/L (98-107); CREATININE FOR GFR 0.76 MG/DL (0.55-1.30); GLOMERULAR FILTRATION RATE 83.7 (>39); MAGNESIUM LEVEL 1.6 MG/DL (1.8-2.4); POTASSIUM SERUM 4.8 MMOL/L (3.5-5.1); SODIUM LEVEL 138.0 MMOL/L (136-145)
[2024-10-24] MEDS: INSULIN LISPRO (NovoLOG) PER UNIT SC SCH (08:14)
[2024-10-24] MEDS: CEFEPIME HCL 1 GM in DEXTROSE 5% (D5W) ADV/MINI-BAG 50 ML IV SCH (09:32)
[2024-10-24] MEDS: FLUCONAZOLE 100 MG TAB PO SCH (09:32)
[2024-10-24] MEDS: VITAMIN D (CHOLECALCIFEROL) 400 INTERNATIONAL UNITS TAB PO SCH (14:43)
[2024-10-24] MEDS: GABAPENTIN 100 MG CAP PO SCH (21:21)
[2024-10-24] MEDS: BACTRIM 160MG/800MG DS TAB PO SCH (21:21)
[2024-10-24] MEDS: SERTRALINE 100 MG TAB PO SCH (21:21)
[2024-10-24] MEDS: MAGNESIUM OXIDE 400 MG TAB PO SCH (21:21)
[2024-10-24] MEDS: GABAPENTIN 100 MG CAP PO ONE (22:16)
[2024-10-25 04:00] VITALS: BP 121/56; TEMP 98.8; O2SAT 96
[2024-10-25 04:28] LABS: BASO # 0.0 10^3/uL (0.0-0.2); BASO % 0.3 % (0.0-1.0); EOS # 0.1 10^3/uL (0.0-0.5); EOS % 1.1 % (0.0-3.0); LYMPH # 1.2 10^3/uL (1.5-5.0); LYMPH % 16.6 % (24.0-44.0); MONO # 0.7 10^3/uL (0.0-0.8); MONO % 10.0 % (2.0-8.0); NEUTROPHILS # 5.2 10^3/uL (1.5-8.5); NEUTROPHILS % 71.7 % (36.0-66.0); PLATELET COUNT, AUTOMATED 184 10^3/uL (150-450)
[2024-10-25 04:54] LABS: ALT/SGPT 14 U/L (7.0-40); AST/SGOT 12 U/L (<34); CALCIUM LEVEL 8.9 MG/DL (8.3-10.6); CARBON DIOXIDE LEVEL 19 MMOL/L (20-31); CHLORIDE LEVEL 109 MMOL/L (98-107); CREATININE FOR GFR 0.71 MG/DL (0.55-1.30); GLOMERULAR FILTRATION RATE > 90.0 (>39); POTASSIUM SERUM 4.2 MMOL/L (3.5-5.1); SODIUM LEVEL 140 MMOL/L (136-145)
[2024-10-25 08:51] VITALS: BP 124/57; TEMP 98.2; O2SAT 96
[2024-10-25 09:12] LABS: MAGNESIUM LEVEL 1.3 MG/DL (1.8-2.4)
[2024-10-25 09:14] LABS: C REACTIVE PROTEIN QUANTITATIV 8.01 MG/DL (<1.0)
[2024-10-25 10:01] VITALS: BP 124/57
[2024-10-25] MEDS: MAG SULF 1GM/100ML (MAG RUN) 1 GM in IV 1 EA IV SCH (10:03)
[2024-10-25] MEDS: glipiZIDE 5 MG TAB PO SCH (10:39)
[2024-10-25] MEDS ORDERED: BACTDSTA PO (15:10)
== END 2024-10-25 15:50 | disposition home or self-care (01) | DRG 871 ==
LOC: M ED 08:58 → EDBD 08:58 → M ED INP 14:49 → M ICU 17:07
PROVIDERS: ADMIT Student in an Organized Health Care Education/Training Program; ATTEND Family Medicine
DX: A41.9 Sepsis, unspecified organism (principal); R65.21 Severe sepsis with septic shock; J18.9 Pneumonia, unspecified organism; N39.0 Urinary tract infection, site not specified; K52.9 Noninfective gastroenteritis and colitis, unspecified; E11.65 Type 2 diabetes mellitus with hyperglycemia; I10 Essential (primary) hypertension; F41.9 Anxiety disorder, unspecified; E66.9 Obesity, unspecified; K21.9 Gastro-esophageal reflux disease without esophagitis; B96.20 Unspecified Escherichia coli [E. coli] as the cause of diseases classified elsewhere; B37.32 Chronic candidiasis of vulva and vagina; Z79.84 Long term (current) use of oral hypoglycemic drugs; Z79.899 Other long term (current) drug therapy; Z68.34 Body mass index [BMI] 34.0-34.9, adult

== ENCOUNTER → 2024-11-17 | Outpatient (REF) | payer MEDICARE, OTHER ==
[~2024-11-17] MED LIST changes: +BACTDSTA PO; +GABA-284 PO; +LEVO1TAB39 PO; +VONO20TA PO
== END ==
LOC: M LAB REF 12:07
PROVIDERS: ATTEND Physician Assistant Medical
DX: Z87.440 Personal history of urinary (tract) infections (principal); Z79.899 Other long term (current) drug therapy

== ENCOUNTER 2024-11-20 08:28 | Emergency (ER) | payer MEDICARE, OTHER ==
[~2024-11-20] VITALS: Ht 160 cm; Wt 88.7 kg
[~2024-11-20 08:28] MED LIST changes: -GABA-284 PO; -LEVO1TAB39 PO
[2024-11-20] MEDS ORDERED: GABA-284 PO (09:25)
[2024-11-20] MEDS ORDERED: LEVO1TAB39 PO (09:26)
[2024-11-20 09:28] LABS: BASO # 0.1 10^3/uL (0.0-0.2); BASO % 0.9 % (0.0-1.0); EOS # 0.1 10^3/uL (0.0-0.5); EOS % 1.9 % (0.0-3.0); LYMPH # 2.1 10^3/uL (1.5-5.0); LYMPH % 36.6 % (24.0-44.0); MONO # 0.5 10^3/uL (0.0-0.8); MONO % 9.0 % (2.0-8.0); NEUTROPHILS # 3.0 10^3/uL (1.5-8.5); NEUTROPHILS % 51.4 % (36.0-66.0); PLATELET COUNT, AUTOMATED 233 10^3/uL (150-450)
[2024-11-20 09:39] LABS: INR 0.92
[2024-11-20 09:45] LABS: CK-MB VALUE MASS 1.2 NG/ML (<3.6)
[2024-11-20 09:47] LABS: ALT/SGPT 16 U/L (7.0-40); AST/SGOT 18 U/L (<34); CALCIUM LEVEL 9.9 MG/DL (8.3-10.6); CARBON DIOXIDE LEVEL 21 MMOL/L (20-31); CHLORIDE LEVEL 111 MMOL/L (98-107); CREATININE FOR GFR 0.70 MG/DL (0.55-1.30); GLOMERULAR FILTRATION RATE > 90.0 (>39); MAGNESIUM LEVEL 1.2 MG/DL (1.8-2.4); POTASSIUM SERUM 5.2 MMOL/L (3.5-5.1); SODIUM LEVEL 142 MMOL/L (136-145)
[2024-11-20 09:49] LABS: FREE T4 1.26 NG/DL (0.89-1.76)
[2024-11-20 09:53] LABS: CPK CREATINE PHOSPHOKINASE 16 U/L (34-145); MB/CK RELATIVE INDEX 7.50 (< OR =4)
[2024-11-20] MEDS: MAG SULF 1GM/100ML (MAG RUN) 1 GM in IV 1 EA IV ONE ×3 (10:00→12:00)
[2024-11-20] MEDS: MAG SULF 1GM/100ML (MAG RUN) 1 GM in IV 1 EA IV SCH (14:06)
[2024-11-20 15:30] VITALS: BP 100/52; TEMP 97.5; O2SAT 96
[2024-11-20] MEDS ORDERED: MAG SULF 1GM/100ML (MAG RUN) 1 GM in IV 1 EA IV ONE (18:00)
== END 2024-11-20 15:38 | disposition home or self-care (01) ==
LOC: M ED 09:35
DX: E83.42 Hypomagnesemia (principal); E11.9 Type 2 diabetes mellitus without complications; I10 Essential (primary) hypertension; Z88.0 Allergy status to penicillin; Z88.1 Allergy status to other antibiotic agents; Z88.5 Allergy status to narcotic agent; Z88.6 Allergy status to analgesic agent; Z91.048 Other nonmedicinal substance allergy status; Z79.84 Long term (current) use of oral hypoglycemic drugs; Z79.899 Other long term (current) drug therapy; Z79.810 Long term (current) use of selective estrogen receptor modulators (SERMs)
CPT/HCPCS: 71045; 80048; 80076; 82550; 82553; 83690; 83735; 84132; 84439; 84443; 84484; 85025; 85610; 85730; 93005; 93041; 94760; 96365; 96366; 97161; 99285; J3475

== ENCOUNTER → 2024-11-23 | Outpatient (REF) | payer MEDICARE, OTHER ==
[~2024-11-23] MED LIST changes: +GABA-284 PO; +LEVO1TAB39 PO
== END ==
LOC: M LAB REF 14:34
PROVIDERS: ATTEND Physician Assistant Medical
DX: E83.42 Hypomagnesemia (principal); R53.83 Other fatigue

== ENCOUNTER 2024-11-24 12:41 | Outpatient (CLI) | payer MEDICARE, OTHER ==
[~2024-11-24] VITALS: Ht 160 cm; Wt 89.0 kg
[2024-11-24 13:10] VITALS: BP 117/55; O2SAT 97
[2024-11-24] MEDS: MAG SULF 1GM/100ML (MAG RUN) X2 IV SCH (13:10)
[2024-11-24 15:20] VITALS: BP 106/50; O2SAT 97
== END 2024-11-24 15:20 ==
LOC: M INFU 12:41
PROVIDERS: ATTEND Physician Assistant Medical
DX: E83.42 Hypomagnesemia (principal); Z88.0 Allergy status to penicillin; Z88.1 Allergy status to other antibiotic agents; Z88.8 Allergy status to other drugs, medicaments and biological substances; Z88.5 Allergy status to narcotic agent; Z88.6 Allergy status to analgesic agent; Z91.048 Other nonmedicinal substance allergy status
CPT/HCPCS: 96365; 96366; J3475

== ENCOUNTER → 2024-11-26 | Outpatient (REF) | payer MEDICARE, OTHER | LOC: M LAB REF 14:56 | PROVIDERS: ATTEND Physician Assistant Medical | DX: E83.42 Hypomagnesemia (principal); N39.0 Urinary tract infection, site not specified ==

== ENCOUNTER 2024-12-14 12:21 | Outpatient (CLI) | payer MEDICARE, OTHER ==
[~2024-12-14] VITALS: Ht 160 cm; Wt 88.6 kg
[2024-12-14 13:05] VITALS: BP 107/47; O2SAT 97
[2024-12-14] MEDS: MAG SULF 1GM/100ML (MAG RUN) X2 IV SCH (13:28)
[2024-12-14 15:35] VITALS: BP 136/65; O2SAT 97
== END 2024-12-14 15:40 | disposition home or self-care (01) ==
LOC: M INFU 12:21
PROVIDERS: ATTEND Physician Assistant Medical
DX: E83.42 Hypomagnesemia (principal); Z88.0 Allergy status to penicillin; Z88.1 Allergy status to other antibiotic agents; Z88.5 Allergy status to narcotic agent; Z88.6 Allergy status to analgesic agent; Z91.048 Other nonmedicinal substance allergy status
CPT/HCPCS: 96365; 96366; J3475

== ENCOUNTER 2025-01-13 00:42 | Emergency (ER) | payer MEDICARE, OTHER ==
[~2025-01-13] VITALS: Ht 160 cm; Wt 88.6 kg
[2025-01-13] MEDS: NS (Normal Saline) 0.9% 1,000 ML IV ONE (02:30)
[2025-01-13 02:45] LABS: BASO # 0.0 10^3/uL (0.0-0.2); BASO % 0.4 % (0.0-1.0); EOS # 0.0 10^3/uL (0.0-0.5); EOS % 0.2 % (0.0-3.0); LYMPH # 1.5 10^3/uL (1.5-5.0); LYMPH % 14.8 % (24.0-44.0); MONO # 0.8 10^3/uL (0.0-0.8); MONO % 8.0 % (2.0-8.0); NEUTROPHILS # 7.6 10^3/uL (1.5-8.5); NEUTROPHILS % 76.1 % (36.0-66.0); PLATELET COUNT, AUTOMATED 241 10^3/uL (150-450)
[2025-01-13 02:53] LABS: ALT/SGPT 18 U/L (7.0-40); AST/SGOT 30 U/L (<34); CALCIUM LEVEL 8.7 MG/DL (8.3-10.6); CARBON DIOXIDE LEVEL 20 MMOL/L (20-31); CHLORIDE LEVEL 102 MMOL/L (98-107); CK-MB VALUE MASS 3.1 NG/ML (<3.6); CPK CREATINE PHOSPHOKINASE 269 U/L (34-145); CREATININE FOR GFR 0.62 MG/DL (0.55-1.30); GLOMERULAR FILTRATION RATE > 90.0 (>39); MAGNESIUM LEVEL 1.5 MG/DL (1.8-2.4); MB/CK RELATIVE INDEX 1.15 (< OR =4); POTASSIUM SERUM 4.4 MMOL/L (3.5-5.1); SODIUM LEVEL 133 MMOL/L (136-145)
[2025-01-13 03:04] LABS: CK-MB VALUE MASS 3.0 NG/ML (<3.6)
[2025-01-13 03:05] LABS: CPK CREATINE PHOSPHOKINASE 248.0 U/L (34-145); MB/CK RELATIVE INDEX 1.2 (< OR =4)
[2025-01-13] MEDS: MAG SULF 1GM/100ML (MAG RUN) 1 GM in IV 1 EA IV ONE (04:59)
[2025-01-13 05:19] LABS: KETONE, URINE AUTO RFX NEGATIVE (NEGATIVE); LEUKOCYTE ESTERASE UR AUTO RFX NEGATIVE (NEGATIVE); NITRITE, URINE AUTO RFX NEGATIVE (NEGATIVE); RBC, URINE AUTO RFX 2 /HPF (0-3); SQUAM EPITHELIAL CELL UR AURFX 0 /HPF (0-6); WBC, URINE AUTO RFX 5 /HPF (0-3)
[2025-01-13 06:00] VITALS: TEMP 96.8
[2025-01-13] MEDS: HumuLIN R (REGULAR) INSULIN (NovoLIN R) **100 U/ML** PER UNIT IV ONE (06:00)
[2025-01-13 06:45] VITALS: BP 102/49; O2SAT 95
== END 2025-01-13 07:07 | disposition home or self-care (01) ==
LOC: M ED 00:42
DX: E11.65 Type 2 diabetes mellitus with hyperglycemia (principal); E83.42 Hypomagnesemia; R53.1 Weakness; I44.0 Atrioventricular block, first degree; F41.9 Anxiety disorder, unspecified; Z88.0 Allergy status to penicillin; Z88.1 Allergy status to other antibiotic agents; Z88.5 Allergy status to narcotic agent; Z88.6 Allergy status to analgesic agent; Z91.09 Other allergy status, other than to drugs and biological substances; Z79.84 Long term (current) use of oral hypoglycemic drugs; Z79.899 Other long term (current) drug therapy; Z79.810 Long term (current) use of selective estrogen receptor modulators (SERMs)
CPT/HCPCS: 71045; 80048; 80076; 81001; 82550; 82553; 83605; 83690; 83735; 84145; 84484; 85025; 87040; 87486; 87581; 87633; 87798; 93005; 93041; 96361; 96365; 99285; J1815; J3475